=== PATIENT | female | born 1955 | race Caucasian/White ===

== ENCOUNTER → 2018-03-29 14:26 | Outpatient (CLI) | payer SELFPAY ==
[2018-03-30 11:54] LABS: Cancer Antigen 125 13.4 U/mL (0.0-38.1)
== END ==
PROVIDERS: Visit Provider Obstetrics & Gynecology
DX: C54.1 Malignant neoplasm of endometrium (principal)
CPT/HCPCS: 36415; 86304

== ENCOUNTER → 2018-09-20 11:17 | Outpatient (CLI) | payer SELFPAY ==
[2018-09-21 10:29] LABS: Cancer Antigen 125 14.9 U/mL (0.0-38.1)
== END ==
PROVIDERS: Family Provider Family Medicine; PCP Family Medicine; Visit Provider Obstetrics & Gynecology
DX: C55 Malignant neoplasm of uterus, part unspecified (principal)
CPT/HCPCS: 36415; 86304

== ENCOUNTER → 2019-03-22 | Outpatient (CLI) | payer SELFPAY ==
[2019-03-25 13:17] LABS: Cancer Antigen 125 12.9 U/mL (0.0-38.1)
== END | disposition home or self-care (01) ==
LOC: WOBLAB 14:51
PROVIDERS: PCP Family Medicine; Visit Provider Obstetrics & Gynecology
DX: C54.1 Malignant neoplasm of endometrium (principal)
CPT/HCPCS: 36415; 86304

== ENCOUNTER → 2019-09-25 10:54 | Outpatient (CLI) | payer SELFPAY ==
[2019-09-27 09:48] LABS: Cancer Antigen 125 14.1 U/mL (0.0-38.1)
== END ==
PROVIDERS: PCP Family Medicine; Visit Provider Obstetrics & Gynecology
DX: C54.1 Malignant neoplasm of endometrium (principal)
CPT/HCPCS: 36415; 86304

== ENCOUNTER → 2019-11-20 11:03 | Outpatient (CLI) | payer SELFPAY ==
--- NOTE | 2019-11-20 11:06 | BI_ITS ---
MAMMOGRAPHY - BILATERAL SCREENING REASON FOR EXAM: Female, 64 years old. Routine annual screening examination. PERTINENT HISTORY: Non-contributory. TECHNIQUE: Digital bilateral breast murray (3D mammographic acquisition) in the CC and MLO projections. 2-D mediolateral oblique (MLO) and craniocaudad (CC) views of both breasts were obtained. CAD: Full Field Digital Mammography with Computer Added Detection was performed. COMPARISON: None. Baseline examination. FINDINGS: Breast Composition: The breasts are heterogeneously dense, which may obscure small masses. There are no dominant masses or suspicious calcifications. No other significant abnormalities are identified. BI/SCREEN MAMM (CAD) W/MURRAY BILAT IMPRESSION: Negative screening mammogram. Yearly followup mammogram recommended. (A) ASSESSMENT CATEGORY: BIRADS Category 1: Negative. A letter regarding these results will be sent to the patient by the facility within 30 days. Approximately 10% of breast cancers are not detected by mammography. A normal mammogram should not delay biopsy of a clinically suspicious abnormality. [id number] Electronically Signed: Jj Nascimento, at 12:13 EST , Service support ,
== END ==
PROVIDERS: Family Provider Family Medicine; PCP Family Medicine; Referring Provider Obstetrics & Gynecology; Visit Provider Obstetrics & Gynecology
DX: Z12.31 Encounter for screening mammogram for malignant neoplasm of breast (principal)
CPT/HCPCS: 77063; 77067

== ENCOUNTER → 2020-03-19 | Outpatient (CLI) | payer OTHER, SELFPAY ==
[2020-03-21 12:17] LABS: Cancer Antigen 125 13.7 U/mL (0.0-38.1)
== END | disposition home or self-care (01) ==
LOC: LABSPEC 17:45
PROVIDERS: PCP Family Medicine; Visit Provider Obstetrics & Gynecology
DX: C54.1 Malignant neoplasm of endometrium (principal)
CPT/HCPCS: 86304

== ENCOUNTER → 2020-10-14 11:24 | Outpatient (CLI) | payer SELFPAY ==
[2020-10-15 16:08] LABS: Cancer Antigen 125 13.2 U/mL (0.0-38.1)
== END ==
PROVIDERS: PCP Family Medicine; Visit Provider Obstetrics & Gynecology
DX: C54.1 Malignant neoplasm of endometrium (principal)
CPT/HCPCS: 36415; 86304

== ENCOUNTER → 2021-05-05 13:17 | Outpatient (CLI) | payer SELFPAY | PROVIDERS: PCP Family Medicine; Visit Provider Obstetrics & Gynecology | DX: Z85.42 Personal history of malignant neoplasm of other parts of uterus (principal) | CPT/HCPCS: 36415; 86304 ==

== ENCOUNTER → 2021-10-28 10:28 | Outpatient (CLI) | payer SELFPAY ==
[2021-10-29 10:16] LABS: Cancer Antigen 125 15.2 U/mL (0.0-38.1)
== END ==
PROVIDERS: PCP Family Medicine; Visit Provider Obstetrics & Gynecology
DX: Z85.42 Personal history of malignant neoplasm of other parts of uterus (principal)
CPT/HCPCS: 36415; 86304

== ENCOUNTER → 2022-05-11 | Outpatient (CLI) | payer OTHER, SELFPAY ==
[2022-05-12 11:28] LABS: Cancer Antigen 125 13.3 U/mL (0.0-38.1)
== END | disposition home or self-care (01) ==
PROVIDERS: PCP Family Medicine; Visit Provider Obstetrics & Gynecology
DX: Z85.42 Personal history of malignant neoplasm of other parts of uterus (principal)
CPT/HCPCS: 36415; 86304

== ENCOUNTER → 2022-11-08 | Outpatient (CLI) | payer OTHER, SELFPAY ==
[2022-11-10 16:40] LABS: Cancer Antigen 125 13.8 U/mL (0.0-38.1)
== END | disposition home or self-care (01) ==
LOC: WOBLAB 13:38
PROVIDERS: PCP Family Medicine; Visit Provider Obstetrics & Gynecology
DX: C55 Malignant neoplasm of uterus, part unspecified (principal)
CPT/HCPCS: 36415; 86304

== ENCOUNTER → 2023-05-09 | Outpatient (CLI) | payer OTHER, SELFPAY | END | disposition home or self-care (01) | LOC: WOBLAB 11:16 | PROVIDERS: PCP Family Medicine; Visit Provider Obstetrics & Gynecology | DX: Z85.42 Personal history of malignant neoplasm of other parts of uterus (principal) | CPT/HCPCS: 36415; 86304 ==

== ENCOUNTER 2023-12-18 21:32 | Emergency (ER) | payer OTHER, SELFPAY ==
[2023-12-18 21:35] VITALS: BP 188/90; PULSE 90; RESP 18; TEMP 36.6; O2SAT 99; BMI 30.3
--- NOTE | 2023-12-19 02:45 | ED.VIS.FEGU ---
HPI HPI - Female History of Present Illness Chief Complaint: Vag Bleeding Informant: patient Narrative Narrative: 68-year-old patient states after urinating without any symptoms or bleeding, she took a shower and said that she passed a small amount of blood vaginally while in the shower. No other symptoms. Denies any abdominal pain, problems with bowel movement except for some constipation, vaginal discomfort or other discharge recently. She had a total hysterectomy along with a BSO about 7 years ago for uterine cancer and is concerned that she may have recurrence. FORMERLY [facility], 1928–1983 PFS Medical History (Updated 12/19/23 @ 02:[address] Juan J Eid MD) Uterine cancer Home Medications NK 12/19/23 [History Last Taken Unknown] estradiol 0.01% (0.1 mg/gram) vaginal cream See Rx Instructions .Route .COMPLEX #42.5 grams 12/19/23 [Rx Last Taken Unknown] Allergy/AdvReac Type Severity Reaction Status Date / Time Penicillins Allergy Rash Verified 12/18/23 21:35 Surgical History (Updated 12/19/23 @ 02:[address] Juan J Eid MD) S/P AYSHA-BSO (total abdominal hysterectomy and bilateral salpingo-oophorectomy) Social History Smoking Status: Never smoker ROS ROS ED Constitutional Constitutional ED: Denies chills or fever(s) Eyes Eyes: Denies change in vision or diplopia ENT ENT ED: Denies rhinorrhea or sore throat Cardiovascular Cardiovascular: Denies chest pain or palpitations Respiratory/Chest Respiratory/Chest: Denies cough or dyspnea Gastrointestinal Gastrointestinal: Reports constipation; Denies abdominal pain, diarrhea, nausea or vomiting Genitourinary Genitourinary ED: Denies dysuria or hematuria Musculoskeletal Musculoskeletal: Denies back pain or neck pain Integumentary Denies abscess or rash Neurologic Neurologic: Denies headache(s), paresthesias or weakness Psychiatric Psychiatric: Denies anxiety or suicidal thoughts EXAM Physical Exam Const Vital Signs: 12/18/23 21:35 12/19/23 03:00 Temperature 97.9 F Temperature Source Temporal Pulse Rate 90 81 Respiratory Rate 18 16 Blood Pressure 188/90 H 165/74 H Blood Pressure Mean 122 104 Pulse Ox 99 99 Oxygen Delivery Method Room Air Positive well nourished and well developed General Appearance ED: well developed and NAD HEENT Reports moist mucous membranes normocephalic and atraumatic Eyes PERRL and EOMs intact bilaterally Neck full ROM and supple Resp normal respiratory effort and clear to auscultation bilaterally Cardio regular rate, regular rhythm and no murmurs GI non-tender and non-distended Auscultation: normoactive bowel sounds Palpation: soft Narrative: External exam performed with nurse materials development engineer normal unremarkable. No active bleeding or signs of blood. On speculum exam, there are a few mild white patches of vaginal mucosa and deep closer to the cuff which is intact, there are a couple of mildly irritated areas within some white discoloration without scabs or blood but that appear like they could have been the source of bleeding. Back/Spine no CVA tenderness General Back: other FROM Extremity normal to inspection General Extremety ED: Negative for edema, pulses abnormal or tenderness General Extremity: Negative for edema or pulses abnormal Neuro oriented x3, CN's II-XII intact bilaterally and no sensory deficits noted Sensorium / Orientation: awake and alert Motor Exam: strength 5/5 throughout Skin no rashes or lesions noted and no wounds MDM MDM MDM Narrative Medical decision making narrative: On the patient's exam there is nothing that looks like a mass, the cuff is intact, she has no pain or abdominal symptoms, she has no symptoms of anemia, and I do not think she needs any further emergent testing at this time. She presents during overnight shift, and I told her it would be very difficult to rule out the possibility of cancer recurrence in the emergency department, however that would not be the most likely etiology of this. I am going to prescribe her estradiol cream 3 times weekly for possible atrophic vaginitis and advised her to follow-up with either her family doctor or gynecology. She used to see Dr. Peñaloza here, that practice dissolved and so she is referred to Dr. Geiger who is on for unassigned patients. Discharge Plan Triage Chief Complaint: Vag Bleeding ED Provider: Juan J Eid Dx/Rx/DC Orders Clinical Impression: Abnormal vaginal bleeding in postmenopausal patient Instructions: ED Atrophic Vaginitis Prescriptions: New estradiol 0.01 % (0.1 mg/gram) cream See Rx Instructions .ROUTE .COMPLEX Qty: 42.5 0RF Rx Instructions: 1 g vaginally 3x/week;for 14 days No Action NK Primary Care Provider: Hussein Hodges Referrals: Haydee Bear DO [Med Staff - Active Staff] - (for JUSTICE COURT DEPUTY CLERK if needed) uHssein Hodges DO [Primary Care Provider] - Disposition Disposition: Home, Self Care Discharge Date/Time: 12/19/23 03:02
[2023-12-19 03:00] VITALS: BP 165/74; PULSE 81; RESP 16; O2SAT 99
== END 2023-12-19 03:02 | disposition home or self-care (01) ==
PROVIDERS: Emergency Provider Emergency Medicine; PCP Family Medicine; Visit Provider Emergency Medicine
DX: N95.0 Postmenopausal bleeding (principal)
CPT/HCPCS: 99282

== ENCOUNTER 2024-08-19 20:18 | Emergency (ER) | payer OTHER, SELFPAY ==
[2024-08-19 20:19] VITALS: BP 148/100; TEMP 36.4; O2SAT 98; BMI 29.4
--- NOTE | 2024-08-19 20:59 | RAD_ITS ---
INDICATION: cough EXAMINATION/TECHNIQUE: X-RAY - XR Chest 2 Views COMPARISON: FINDINGS: LINES/DEVICES: None. LUNGS: No consolidation, edema or effusion. No pneumothorax. MEDIASTINUM AND CARDIOVASCULAR STRUCTURES: Cardiac silhouette not enlarged. Central airways and mediastinal contour are unremarkable. BONES AND SOFT TISSUES: Unremarkable. RAD/Chest PA and Lateral IMPRESSION: No radiographic evidence of acute cardiopulmonary disease. Electronically Signed: Andrea Perry DO at 22:27 EDT ,
--- NOTE | 2024-08-19 21:00 | EKG12_ITS ---
Test Reason : COLD Blood Pressure : / mmHG Vent. Rate : 071 BPM Atrial Rate : 071 BPM P-R Int : 170 ms QRS Dur : 078 ms QT Int : 370 ms P-R-T Axes : 031 -02 019 degrees QTc Int : 402 ms Normal sinus rhythm Normal ECG Confirmed by Oh Stafford ([id number]), story editor ISABEL ALMEIDA ([id number]) on 08/21/2024 6:40:26 AM Referred By: Confirmed By:Oh Stafford
--- NOTE | 2024-08-19 21:09 | EDS_ITS ---
HPI <BONIFACIO Miller - Last Filed: 08/19/24 22:08> History of Present Illness Chief Complaint: Cold Sx Narrative Narrative: Patient is a 69-year-old female who does not see a primary care physician regularly who has history of uterine cancer 8 years ago presenting to the emergency department for 2 weeks of intermittent feeling of unwell, intermittent feeling lightheaded, nauseous. Patient states that over the last 2 weeks, she has had 2 funerals, she feels like maybe her anxiety is playing a part in these feelings. She denies any specific pain, she denies shortness of breath, chest pain, fever or chills. She denies any dysuria, blood in stool. PFSH <BONIFACIO Miller - Last Filed: 08/19/24 22:08> [facility] Medical History (Updated 08/19/24 @ 22:07 by BONIFACIO Miller) Uterine cancer Home Medications ?Medication ?Instructions ?Recorded ?Last Taken ?Type estradiol 0.01% (0.1 mg/gram) See Rx Instructions .Route 12/19/23 Unknown Rx vaginal cream .COMPLEX #42.5 grams ondansetron 4 mg disintegrating 4 mg PO Q8H PRN PRN Nausea #10 tabs 08/19/24 Unknown Rx tablet Allergy/AdvReac Type Severity Reaction Status Date / Time Penicillins Allergy Rash Verified 08/19/24 20:24 Family History no significant family his Surgical History S/P AYSHA-BSO (total abdominal hysterectomy and bilateral salpingo-oophorectomy) Social History Smoking Status: Never smoker ROS <BONIFACIO Miller - Last Filed: 08/19/24 22:08> ROS ED ROS Narrative Constitutional: Negative for fever, chills, weight loss. Positive for weakness, fatigue Eyes: Negative for vision loss, vision change, double vision ENT: Negative for any sore throat, ear pain, congestion Cardiovascular: Negative for any chest pain, tightness, palpitations Respiratory: Negative for any cough, sputum production, hemoptysis, dyspnea, dyspnea on exertion, orthopnea Gastrointestinal: Negative for any abdominal pain, vomiting, diarrhea, constipation, blood in stool, blood in vomit. Positive for nausea : Negative for any urinary frequency, dysuria, retention, blood in urine Muscle skeletal: Negative for any neck pain, back pain Neurological: Negative for any headache, syncope. Positive for dizziness, lightheadedness Skin: Negative for any rashes, itching, abrasions, lacerations Psychiatric: Negative for any depression, anxiety, stress, suicidal ideation, homicidal ideation Hematologic: Negative for any excessive bruising, easy bleeding EXAM <BONIFACIO Miller - Last Filed: 08/19/24 22:08> Physical Exam Narrative Exam Narrative: Vital signs reviewed. HEET: Head normocephalic atraumatic, TMs clear bilaterally. Posterior pharynx is clear, moist mucous membranes. Nares clear bilaterally. Neck: Supple with no lymphadenopathy or tenderness. No signs of meningismus. Cardiac: Regular rate and rhythm no murmurs gallops or rubs, equal peripheral pulses bilaterally. Respiratory: Lungs clear to auscultation bilaterally. No chest tenderness. Abdomen: Soft, nontender, nondistended. No abdominal bruit or pulsatile masses. No hepatosplenomegaly Extremities: No peripheral edema, no signs of gross trauma or deformity. Active full range of motion of all extremities. Neuro: Cranial nerves II through XII intact, no focal neurological deficits. Skin: Clean dry and intact with no rash, purpura, petechiae, vesicles or pustules. Backs/flank: No CVA tenderness, no midline spinal tenderness, no deformity. Psych: Normal mood and affect. No SI, HI or acute psychosis. Const Vital Signs: 08/19/24 20:19 08/19/24 20:25 08/19/24 22:14 Temperature 97.6 F L 97.6 F L Temperature Source Temporal Pulse Rate 65 Respiratory Rate 16 Respiratory Effort Normal Non-Labored Respiratory Pattern Normal Blood Pressure 148/100 H 148/100 H Blood Pressure Mean 116 116 Pulse Ox 98 98 Oxygen Delivery Method Room Air Positive well nourished and well developed General Appearance ED: well developed <Dr. Gulshan Corona DO - Last Filed: 08/19/24 23:52> Physical Exam Const Vital Signs: 08/19/24 20:19 08/19/24 20:25 08/19/24 22:14 Temperature 97.6 F L 97.6 F L Temperature Source Temporal Pulse Rate 65 Respiratory Rate 16 Respiratory Effort Normal Non-Labored Respiratory Pattern Normal Blood Pressure 148/100 H 148/100 H Blood Pressure Mean 116 116 Pulse Ox 98 98 Oxygen Delivery Method Room Air [facility] <BONIFACIO Miller - Last Filed: 08/19/24 22:08> [facility] Lab Data Labs: Laboratory Results - last 24 hr 08/19/24 08/19/24 21:11 21:55 WBC 6.9 RBC 4.24 Hgb 12.7 Hct 38.7 MCV 91.3 MCH 30.0 MCHC 32.8 RDW Std Deviation 43.4 RDW Coeff of Otoniel 13.1 Plt Count 319 MPV 9.3 Immature Gran % (Auto) 0.100 Neut % (Auto) 66.0 Lymph % (Auto) 22.8 [place] % (Auto) 9.9 Eos % (Auto) 0.6 Baso % (Auto) 0.6 Absolute Neuts (auto) 4.5 Absolute Lymphs (auto) 1.56 Nucleated RBC % 0 Sodium 140 Potassium 3.8 Chloride 108 H Carbon Dioxide 25.0 Anion Gap 7 BUN 15 Creatinine 0.89 Estim Creat Clear Calc 55.02 Est GFR (MDRD) Af Amer 80 Est GFR (MDRD) Non-Af 66 BUN/Creatinine Ratio 16.8 Glucose 101 Calcium 9.6 Total Bilirubin 0.40 AST 24 ALT 41 Alkaline Phosphatase 67 Troponin I High Sens 5 Total Protein 7.1 Albumin 4.1 Globulin 3.0 Albumin/Globulin Ratio 1.4 Lipase 32 TSH 4.060 H Urine Color Yellow Urine Clarity Clear Urine pH 6.0 Ur Specific Elliott 1.010 Urine Protein Negative Urine Glucose (UA) Normal Urine Ketones 5 H Urine Occult Blood Negative Urine Nitrite Negative Urine Bilirubin Negative Urine Urobilinogen Normal Ur Leukocyte Esterase 100 H Urine RBC 0 SEEN Urine WBC 5-10 SEEN Ur Squamous Epith Cells 5-10 SEEN Ur Transition Epith Cell 0-5 SEEN Urine Bacteria RARE Urine Mucus 0 SEEN Radiography Diagnostic Testing: Clinical Impression(s) from Imaging Studies Chest X-Ray 08/19/24 20:59 IMPRESSION: No radiographic evidence of acute cardiopulmonary disease. Electronically Signed: Andrea Perry DO at 22:27 EDT , EKG Normal sinus rhythm: Attestation: I personally reviewed and interpreted this EKG as follows: Interpretation: Sinus Rhythm Comments: Normal sinus rhythm, rate of 71 bpm, [place] 170 ms, QRS duration 78 ms, no acute ST elevation, no acute infarct noted. Treatment and Re-Evaluation :: Differential diagnosis includes however is not limited to: ACS, DC, community- acquired pneumonia, dehydration, SELENA, anxiety Patient appears generally well, vital signs are stable, patient is nontoxic- appearing. Presenting to the emergency department for feeling of unwell for 2 weeks. Patient states she has been under a great deal of stress, she has had to funerals this last 2 weeks, 1 was unexpected and she is taking it hard. Patient states she does feel intermittent dizziness which she described as lightheadedness, denies any chest pain or shortness of breath. She states that this comes intermittently, and is here for evaluation. She will receive a card iac workup including basic laboratory values, troponin, chest x-ray. TSH will be obtained. Patient be given IV Zofran, all radiologic examinations were read, reviewed by the emergency department attending. From these reads, a plan of care will be put in place.\ Patient CBC was unremarkable, patient's chemistries were unremarkable, TSH was only slightly elevated at 4.060. Troponin was negative. Patient's chest x-ray was negative for any acute process. Urinalysis was negative for any infection. Patient's COVID-19 influenza and RSV were negative. At this time, there is no evidence of any ACS, DC, electrolyte abnormality, pneumonia, viral illness. Patient is going through a very difficult time in her personal life with multiple deaths in the family. I did leave the patient is stable for discharge but she will need to follow-up outpatient. Instructed return for any worsening symptoms. Stable for discharge. <Dr. Gulshan Corona, DO - Last Filed: 08/19/24 23:52> [facility] History & Record Review Discussion w/independent historian: Patient Lab Data Attestation: I reviewed the patient's lab results. Labs: Laboratory Results - last 24 hr 08/19/24 08/19/24 21:11 21:55 WBC 6.9 RBC 4.24 Hgb 12.7 Hct 38.7 MCV 91.3 MCH 30.0 MCHC 32.8 RDW Std Deviation 43.4 RDW Coeff of Otoniel 13.1 Plt Count 319 MPV 9.3 Immature Gran % (Auto) 0.100 Neut % (Auto) 66.0 Lymph % (Auto) 22.8 [place] % (Auto) 9.9 Eos % (Auto) 0.6 Baso % (Auto) 0.6 Absolute Neuts (auto) 4.5 Absolute Lymphs (auto) 1.56 Nucleated RBC % 0 Sodium 140 Potassium 3.8 Chloride 108 H Carbon Dioxide 25.0 Anion Gap 7 BUN 15 Creatinine 0.89 Estim Creat Clear Calc 55.02 Est GFR (MDRD) Af Amer 80 Est GFR (MDRD) Non-Af 66 BUN/Creatinine Ratio 16.8 Glucose 101 Calcium 9.6 Total Bilirubin 0.40 AST 24 ALT 41 Alkaline Phosphatase 67 Troponin I High Sens 5 Total Protein 7.1 Albumin 4.1 Globulin 3.0 Albumin/Globulin Ratio 1.4 Lipase 32 TSH 4.060 H Urine Color Yellow Urine Clarity Clear Urine pH 6.0 Ur Specific Elliott 1.010 Urine Protein Negative Urine Glucose (UA) Normal Urine Ketones 5 H Urine Occult Blood Negative Urine Nitrite Negative Urine Bilirubin Negative Urine Urobilinogen Normal Ur Leukocyte Esterase 100 H Urine RBC 0 SEEN Urine WBC 5-10 SEEN Ur Squamous Epith Cells 5-10 SEEN Ur Transition Epith Cell 0-5 SEEN Urine Bacteria RARE Urine Mucus 0 SEEN Radiography Diagnostic Testing: Clinical Impression(s) from Imaging Studies Chest X-Ray 08/19/24 20:59 IMPRESSION: No radiographic evidence of acute cardiopulmonary disease. Electronically Signed: Andrea Perry DO at 22:27 EDT Reading Location ID and State: [address] [place] [address] Tel [phone], Service support , Treatment and Re-Evaluation :: Differential diagnosis includes however is not limited to: ACS, DC, community- acquired pneumonia, dehydration, SELENA, anxiety Patient appears generally well, vital signs are stable, patient is nontoxic- appearing. Presenting to the emergency department for feeling of unwell for 2 weeks. Patient states she has been under a great deal of stress, she has had to funerals this last 2 weeks, 1 was unexpected and she is taking it hard. Patient states she does feel intermittent dizziness which she described as lightheadedness, denies any chest pain or shortness of breath. She states that this comes intermittently, and is here for evaluation. She will receive a cardiac workup including basic laboratory values, troponin, chest x-ray. TSH will be obtained. Patient be given IV Zofran, all radiologic examinations were read, reviewed by the emergency department attending. From these reads, a plan of care will be put in place.\ Patient CBC was unremarkable, patient's chemistries were unremarkable, TSH was only slightly elevated at 4.060. Troponin was negative. Patient's chest x-ray was negative for any acute process. Urinalysis was negative for any infection. Patient's COVID-19 influenza and RSV were negative. At this time, there is no evidence of any ACS, DC, electrolyte abnormality, pneumonia, viral illness. Patient is going through a very difficult time in her personal life with multiple deaths in the family. I did leave the patient is stable for discharge but she will need to follow-up outpatient. Instructed return for any worsening symptoms. Stable for discharge. I have personally performed a face to face assessment of the patient and have reviewed the SAMMY Note. I performed a substantive portion of the visit including all aspects of the following. My rudolph findings include: History is atient presenting to the emergency room with generalized fatigue. Patient has had 2 funerals in the past 2 weeks. Patient does not have any focal complaints other than feeling blah. She notes decreased appetite. Exam is nonfocal examination. Heart regular without murmur lung sounds clear and equal neurologically appears intact. Medical Decison Making basic blood work was obtained. TSH is mildly elevated. Otherwise the workup is negative. I do wonder if the patient has a degree of depression. She does have appointment tomorrow with primary care and I think at this time we can allow her to be discharged home and follow-up there. She is comfortable with this plan Discharge Plan Triage Chief Complaint: Cold Sx ED Midlevel Provider: Giovanni Morales ED Provider: Gulshan Corona Dx/Rx/DC Orders Clinical Impression: Anxiety, Light headed Instructions: Your Body's Response to Anxiety, ED Dizziness, Uncertain Cause Prescriptions: New ondansetron 4 mg tablet,disintegrating 4 mg PO Q8H PRN PRN (Reason: Nausea) Qty: 10 0RF No Action estradiol 0.01 % (0.1 mg/gram) cream See Rx Instructions .ROUTE .COMPLEX Qty: 42.5 0RF Rx Instructions: 1 g vaginally 3x/week;for 14 days Primary Care Provider: Hussein Hodges Referrals: Olinda Cha MD [Med Staff - Commercial Collector] - Hussein Hodges DO [Primary Care Provider] - Activity Restrictions/Additional Instructions: Please follow-up outpatient. Print Language: Albanian Disposition Disposition: Home, Self Care Discharge Date/Time: 08/19/24 22:31
[2024-08-19] MEDS: Ondansetron 4 MG/2 ML Vial IV (21:12)
[2024-08-19 21:23] LABS: Absolute Lymphocyte Count 1.56 X10^3/uL (0.83-4.51); Absolute Neutrophil Count 4.5 X10^3/uL (2.0-7.7); Basophil# 0.04 X10^3/uL; Basophil% 0.6 % (0-1); Eosinophil# 0.04 X10^3/uL; Eosinophils% 0.6 % (0-5); Hematocrit 38.7 % (37-47); Hemoglobin 12.7 g/dL (12.0-15.0); Lymphocyte # 1.56 X10^3/ul (0.83-4.51); Lymphocyte % 22.8 % (19-41); Mean Corp Hgb Conc 32.8 g/dL (32-36); Mean Corpuscular Volume 91.3 fL (81-99); Mean Platelet Vol. 9.3 fl (6.2-12.0); Monocyte# 0.68 X10^3/uL; Monocyte% 9.9 % (0-10); NRBC Flagged by Analyzer 0 % (0-5); Neutrophil # 4.52 X10^3/uL (2.7-7.7); Platelet Count 319 K/mm3 (150-450); RBC Distribution Width CV 13.1 % (11.6-14.6); RBC Distribution Width SD 43.4 fl (35.1-43.9); Red Blood Count 4.24 M/mm3 (4.2-5.4); White Blood Count 6.9 K/mm3 (4.4-11.0)
[2024-08-19 21:47] LABS: ALB/GLOB Ratio 1.4 RATIO (0.9-2.4); AST(SGOT) 24 U/L (15-37); Alanine Aminotransfer ALT/SGPT 41 U/L (13-56); Albumin, Serum 4.1 g/dL (3.2-5.0); Alkaline Phosphatase 67 U/L (45-117); Anion Gap 7 (5-15); BUN 15 mg/dL (7-18); BUN/Creat Ratio 16.8 RATIO (10-20); Calcium,Total 9.6 mg/dL (8.5-10.1); Chloride 108 mmol/L (98-107); Creatinine, Serum 0.89 mg/dL (0.55-1.02); EST Glomerular Filtration Rate 66 mL/min (>60); Est Glom Filt Rate - Afr Amer 80 mL/min (>60); Estimated Creatinine Clearance 55.02 ml/min; Glucose 101 mg/dL (74-106); Lipase 32 U/L (13-75); Potassium 3.8 mmol/L (3.5-5.1); Protein, Total 7.1 g/dL (6.4-8.2); Sodium Level 140 mmol/L (136-145); Troponin-I HS 5 pg/mL (3.0-54.0)
[2024-08-19 21:57] LABS: Mucous, Urine 0 SEEN /hpf (<or=2+); Red Blood Cells-Urine 0 SEEN /hpf (0-5)
[2024-08-19 22:04] LABS: Color, Urine Yellow (Yellow); Glucose, Dipstick Normal (Normal); Ketone-Dipstick 5 mg/dl (Negative); Leukocyte Esterase-Dipstick 100 /ul (Negative); Nitrite-Dipstick Negative (Negative); Occult Blood-Urine Negative /ul (Negative); Protein-Dipstick Negative (Negative); Urine Bilirubin Dipstick Negative (Negative); Urine Clarity Clear (Clear); Urine Urobilinogen Normal (Normal)
[2024-08-19 22:14] VITALS: BP 148/100; PULSE 65; RESP 16; TEMP 36.4; O2SAT 98
[2024-08-19 22:14] LABS: Bacteria RARE /hpf (None Seen); Squamous Epithelial Cells - UA 5-10 SEEN /hpf (5-10); Transitional Epithelial - Ur 0-5 SEEN /hpf (0-5); White Blood Cells 5-10 SEEN /hpf (0-5)
== END 2024-08-19 22:31 | disposition home or self-care (01) ==
PROVIDERS: Nurse Practitioner; Emergency Provider Emergency Medicine; PCP Family Medicine; Visit Provider Emergency Medicine
DX: F41.9 Anxiety disorder, unspecified (principal); R42 Dizziness and giddiness; Z85.42 Personal history of malignant neoplasm of other parts of uterus; Z90.722 Acquired absence of ovaries, bilateral
CPT/HCPCS: 71046; 80053; 81001; 83690; 84443; 84484; 85025; 87631; 93005; 96374; 99283; A4216; J2405